=== PATIENT | female | born 1965 | race Caucasian/White ===

== ENCOUNTER → 2017-03-29 | Outpatient (CLI) | payer OTHER ==
[~2017-03-29] MED LIST: ATOM40 PO; BUTA1TAB30 PO; CYCL5TAB PO; IMIT25TA PO; PRED20 PO; TRAM50TA PO
[2017-03-29 10:04] LABS: HEMATOCRIT 35.4 % (35.0-46.0); MEAN CELL VOLUME 82.4 FL (80.0-100.0); MEAN CORPUSCULAR HEMOGLOBIN 27.2 PG (27.0-34.0); MEAN CORPUSCULAR HGB CONC 33.1 % (32.0-36.0); PLATELET COUNT 305 TH/MM3 (150-450); RED BLOOD COUNT 4.29 MIL/MM3 (4.00-5.30); RED CELL DISTRIBUTION WIDTH 15.1 % (11.6-17.2); REVIEW FLAG FINAL; WHITE BLOOD COUNT 11.6 TH/MM3 (4.0-11.0)
--- NOTE | 2017-03-29 21:21 | EKG ---
Date Performed: 03/29/2017 Time Performed: 09:57:15 PTAGE: 51 years EKG: Sinus rhythm LOW QRS VOLTAGE IN PRECORDIAL LEADS BORDERLINE ECG Compared to prior tracing no significant change DOCTOR: Katelin Benavides Interpretating Date/Time 03/29/2017 21:20:25
== END ==
LOC: CPRE 09:32
PROVIDERS: ATTEND Obstetrics & Gynecology
DX: Z01.810 Encounter for preprocedural cardiovascular examination (principal); Z01.812 Encounter for preprocedural laboratory examination; N92.0 Excessive and frequent menstruation with regular cycle
CPT/HCPCS: 36415; 84703; 85027; 93005

== ENCOUNTER 2017-04-04 06:02 | Observation (INO) | payer OTHER ==
[~2017-04-04] VITALS: Ht 160 cm; Wt 77.7 kg
[~2017-04-04 06:02] MED LIST changes: -IMIT25TA PO; -PRED20 PO
[2017-04-04] MEDS ORDERED: CHLORHEXIDINE GLUCONATE 2 % 1 PACK (2 CLOTHS) TOPICAL PRN (06:30)
[2017-04-04] MEDS ORDERED: ceFAZolin 1,000 MG/NS 100 ML IV SCH ×2 (06:30)
[2017-04-04] MEDS ORDERED: POVIDONE IODINE 5% (ANTISEPSIS KIT) 4 APPLICATIONS EACH NARE PRN (06:30)
[2017-04-04] MEDS ORDERED: METOPROLOL TARTRATE 25 MG TAB PO PRN (06:30)
[2017-04-04] MEDS ORDERED: LACTATED RINGER'S 1000 ML IV PRN (06:30)
[2017-04-04] MEDS: ONDANSETRON HCL 4 MG/2 ML VIAL IV PUSH SCH ×2 (06:46→15:22)
[2017-04-04] MEDS ORDERED: MIDAZOLAM HCL 2 MG/2 ML VIAL IV SCH (07:00)
[2017-04-04] MEDS ORDERED: VASOPRESSIN 20 UNITS/ML VIAL (IVTITR) ONE (07:30)
[2017-04-04] MEDS ORDERED: MORPHINE SULFATE 30 MG/30 ML PCA ONE (09:33)
[2017-04-04] MEDS ORDERED: DIMETHICONE/OXYBENZONE/PADMIATE LIP BALM 4.25 GM TOPICAL ONE (09:43)
[2017-04-04] MEDS ORDERED: *MEPERIDINE 25 MG INJ VIAL PERIprocedural Use ONLY ONE (09:54)
[2017-04-04] MEDS ORDERED: KETOROLAC TROMETHAMINE 30 MG/ML (IVP) VIAL ONE (09:54)
[2017-04-04] MEDS ORDERED: KETOROLAC TROMETHAMINE 30 MG/ML (IVP) VIAL IV PUSH ONE ×2 (09:55→17:45)
[2017-04-04] MEDS ORDERED: DEXT 5%-NACL 0.45% 1000 ML INJ 1,000 ML ONE (10:20)
[2017-04-04 11:20] VITALS: BP 121/70; PULSE 77; RESP 20; TEMP 97.2; O2SAT 97
[2017-04-04] MEDS ORDERED: DIMETHICONE/OXYBENZONE/PADMIATE LIP BALM 4.25 GM TOPICAL PRN (11:30)
[2017-04-04] MEDS ORDERED: ROCURONIUM INJ 50 MG/5 ML SYRINGE IV PUSH ONE (12:00)
[2017-04-04] MEDS ORDERED: DEXAMETHASONE SOD PHOS 4 MG/ML VIAL IV ONE (12:00)
[2017-04-04] MEDS ORDERED: LIDOCAINE HCL 1% PF 5 ML SYRINGE OTHER ONE (12:00)
[2017-04-04] MEDS ORDERED: PROPOFOL 200 MG/20 ML AMP IV ONE (12:00)
[2017-04-04] MEDS ORDERED: ONDANSETRON HCL 4 MG/2 ML VIAL IV PUSH ONE (12:00)
[2017-04-04] MEDS ORDERED: LACTATED RINGER'S 1000 ML INJ 3,000 ML IV ONE (12:00)
[2017-04-04] MEDS ORDERED: MIDAZOLAM HCL 2 MG/2 ML VIAL IV ONE (12:00)
[2017-04-04] MEDS ORDERED: EPINEPHrine HCL (1:1000) 1 MG/ML VIAL IV ONE (12:00)
[2017-04-04] MEDS ORDERED: SUGAMMADEX SODIUM 200 MG/2 ML VIAL IV PUSH ONE ×2 (12:35)
[2017-04-04] MEDS ORDERED: DO NOT ADM ANY ANTICOAGULANT DRUGS PRN (15:30)
[2017-04-04 20:00] VITALS: BP 147/82; PULSE 79; RESP 16; TEMP 97.8; O2SAT 94
[2017-04-04] MEDS ORDERED: MORPHINE SULFATE 30 MG/30 ML PCA IV SCH (20:00)
[2017-04-04] MEDS ORDERED: NALOXONE HCL 0.4 MG/ML AMP IV PUSH PRN (20:00)
[2017-04-04] MEDS ORDERED: ONDANSETRON HCL 4 MG/2 ML VIAL IV PUSH PRN (20:00)
[2017-04-04] MEDS ORDERED: diphenhydrAMINE HCL 50 MG/ML VIAL IV PUSH PRN (20:00)
[2017-04-04] MEDS ORDERED: DEXT 5%-NACL 0.45% 1000 ML INJ 1,000 ML IV SCH (20:00)
[2017-04-04] MEDS ORDERED: oxyCODONE/ACETAMINOPHEN 5 MG/325 MG TAB PO PRN (20:30)
[2017-04-04] MEDS ORDERED: PROMETHAZINE INJ 25 MG/ML VIAL IM ONE (20:30)
[2017-04-04] MEDS ORDERED: CYCLOBENZAPRINE HCL 10 MG TAB PO PRN (20:30)
[2017-04-04] MEDS ORDERED: PILL SPLITTER OTHER PRN (21:00)
[2017-04-04] MEDS ORDERED: PCA - TOTAL MG MORPHINE DELIVERED PER SHIFT SCH (22:00)
[2017-04-05] MEDS ORDERED: PROMETHAZINE INJ 25 MG/ML VIAL IM PRN (00:30)
[2017-04-05 01:00] VITALS: BP 109/68; PULSE 82; RESP 16; TEMP 97.8
[2017-04-05] MEDS: KETOROLAC TROMETHAMINE 10 MG TAB PO SCH ×3 (01:34→10:35)
[2017-04-05 05:00] VITALS: BP 118/69; PULSE 80; RESP 18; TEMP 98.1
[2017-04-05 05:59] LABS: REVIEW FLAG FINAL
[2017-04-05] MEDS ORDERED: ACETAMIN 325 MG/BUTALBITAL 50 MG/CAFFEINE 40 MG TAB PO PRN (06:45)
--- NOTE | 2017-04-05 07:56 | MP ---
cc: MADELINE US DATE OF SURGERY 04/04/2017 PREOPERATIVE DIAGNOSIS Leiomyomata uteri, menorrhagia. POSTOPERATIVE DIAGNOSIS Leiomyomata uteri, menorrhagia. PROCEDURE Laparoscopic-assisted supracervical hysterectomy and bilateral salpingectomy. SURGEON MD Ophelia ANESTHESIA General. ESTIMATED BLOOD LOSS 600 cc. COMPLICATIONS None. FINDINGS The patient had a uterus that was approximately 9-10 weeks' size with multiple subserosal and intramural leiomyomata uteri. The fallopian tubes and ovaries were unremarkable. The anterior and posterior cul-de-sacs were free of disease. The liver edge and upper abdominal organs were normal as far as could be visualized. DESCRIPTION OF PROCEDURE The patient was brought into the operating room and following general anesthesia was placed in dorsal lithotomy position. Her vagina, abdomen and perineum were prepped and draped. A HUMI catheter was placed in the uterus and a Morales catheter into the bladder. A 1-cm subumbilical skin incision was made. A Veress needle was inserted and 3 liters of CO2 was infused into the abdomen. The Veress needle was then removed and the laparoscope was placed without difficulty. A second, third and fourth puncture site were created under direct visualization. The findings were as noted above. The harmonic scalpel was used to clamp, cut and seal the upper broad ligaments and round ligaments. The bladder peritoneum was incised and the bladder was sharply dissected off of the anterior cervix. The uterine vessels were skeletonize, then clamped, cut and sealed with the harmonic scalpel. In doing this there was brisk bleeding from the right uterine vessel complex. We made multiple times to seal this before using the Kleppinger forceps successfully. The bleeding from this area accounted for the majority of her excessive blood loss above 200 cc which is more typical. With hemostasis good, the Linne Loop was brought into placed and the cervix was transected across the upper portion. One arteriolar pumper was cauterized. At that point good hemostasis was noted in the entire pelvis. The uterus was then morcellated and removed. The fallopian tubes were removed by sealing the mesosalpinx with the harmonic scalpel and cutting them. The tubes were sent along with the uterus to pathology. The pelvis was copiously irrigated and once more good hemostasis was noted. Photos of all areas were taken. The trocars were then removed and the CO2 gas was allowed to escape. Incisions were then closed with subcuticular #4-0 Vicryl stitch. The patient was then taken to the recovery room in good condition with all counts correct and clear urine draining in the Morales catheter. MD SHIRA Moise/SSB /6:36 PM /7:52 AM
[2017-04-05 08:00] VITALS: BP 109/69; PULSE 76; RESP 16; TEMP 99
[2017-04-05] MEDS: ATOMOXETINE HYDROCHLORIDE 40 MG CAP PO SCH ×2 (08:02→09:00)
[2017-04-05 12:00] VITALS: BP 122/69; PULSE 89; RESP 16; TEMP 98.2
== END 2017-04-05 11:55 | disposition home or self-care (01) ==
LOC: HSDC 06:02 → H1EA 09:30
PROVIDERS: ADMIT Obstetrics & Gynecology; ATTEND Obstetrics & Gynecology
DX: N92.0 Excessive and frequent menstruation with regular cycle (principal); D25.9 Leiomyoma of uterus, unspecified; N83.8 Other noninflammatory disorders of ovary, fallopian tube and broad ligament
CPT/HCPCS: 00840; 58542; 85014; 85018; 86850; 86900; 86901; 86920; 88307; 96372; 96374; 96375; 96376; G0378; J0171; J0690; J1100; J1885; J2175; J2250; J2270; J2405; J2550; J3010; J7120; 36430; P9016

== ENCOUNTER 2017-04-10 13:40 | Emergency (ER) | payer OTHER ==
[~2017-04-10] VITALS: Ht 160 cm; Wt 80.0 kg
[2017-04-10 13:41] VITALS: BP 193/87; PULSE 112; RESP 16; TEMP 97.8; O2SAT 100
[2017-04-10] MEDS ORDERED: IMIT25TA PO (14:14)
[2017-04-10] MEDS ORDERED: PROCHLORPERAZINE INJ 10 MG/2 ML VIAL IVP ONE (14:15)
[2017-04-10] MEDS ORDERED: diphenhydrAMINE HCL 50 MG/ML VIAL IVP ONE (14:15)
[2017-04-10] MEDS ORDERED: MORPHINE SULFATE 2 MG/ML INJ IM ONE (14:15)
--- NOTE | 2017-04-10 14:21 | PD ---
HPI Chief Complaint: Neuro Symptoms/ Deficits Time Seen by Provider: 13:56 Travel History International Travel<30 days: No Contact w/Intl Traveler<30days: No Traveled to known affect area: No History of Present Illness HPI 51-year-old female presents the emergency department with history of transabdominal hysterectomy 6 days ago. Patient then developed migraine symptoms 5 days ago which she has a history of. Since that time the patient is now complaining of low-grade headache at the base of her scalp, and left sided numbness to the left arm and leg. She describes it as pins and needles. She also feels somewhat flighty today. Patient has had some nausea but no vomiting. Patient does have a distant history of lupus which has not been treated since 2007. Patient denies urinary symptoms or troubles with her bowels. She denies fever. She denies visual symptoms. Patient is been taking Naprosyn regularly for her headache for the past 3 days. She denies difficulty walking or any specific complaints of weakness. She has no known drug allergies. PFSH Past Medical History Arthritis: No Asthma: No Autoimmune Disease: Yes (SLE LUPUS) Blood Disorders: No Anxiety: No Depression: No Heart Rhythm Problems: No Cancer: No Cardiac Catheterization: Yes Cardiovascular Problems: No High Cholesterol: No Chest Pain: Yes (OCCASSIONAL) Congestive Heart Failure: No COPD: No Cerebrovascular Accident: No Diabetes: No Diminished Hearing: No Endocrine: No GERD: No Glaucoma: No Genitourinary: No Headaches: Yes (OCCASSIONAL) Hepatitis: No Hiatal Hernia: No Hypertension: Yes Immune Disorder: Yes (LUPUS) Implanted Vascular Access Dvce: No Kidney Stones: No Musculoskeletal: No Neurologic: Yes (MIGRAINES, HERNIATED DISK) Psychiatric: No Reproductive: Yes (FIBROIDS) Respiratory: No Immunizations Current: No Migraines: Yes (OCCASSIONAL) Myocardial Infarction: No Renal Failure: No Seizures: Yes (JUST HAD SEIZURE X 1--TAKES NO MEDS FOR--NO FURTHER PROBLEMS) Sickle Cell Disease: No Sleep Apnea: No Thyroid Disease: No Ulcer: No PNEUMOCCOCAL Vaccine (Year): 2 ?: Not Menopausal: No : 4 Para: 2 Miscarriage: 2 Ectopic : No Ovarian Cysts: No Dilation and Curettage (D&C): No Tubal Ligation: No Past Surgical History Abdominal Surgery: Yes ([id number]/LAP JES ) AICD: No Arteriovenous Shunt: No Body Medical Devices: BREAST AUGMENTATION Cardiac Surgery: Yes (CARDIAC CATH 2005--FOR CP) Cholecystectomy: Yes (LAP JES 2007) Coronary Artery Bypass Graft: No Ear Surgery: No Endocrine Surgery: No Eye Surgery: No Genitourinary Surgery: No Gynecologic Surgery: No Hysterectomy: Yes Insulin Pump: No Joint Replacement: No Oral Surgery: No Pacemaker: No Thoracic Surgery: No Tonsillectomy: Yes Other Surgery: Yes (BREAST AUGMENTATION) Social History Alcohol Use: Yes (OCCASSIONAL WINE) Tobacco Use: No Substance Use: No Allergies-Medications (Allergen,Severity, Reaction): Coded Allergies: No Known Allergies (Verified Allergy, Unknown, 04/10/17) Reported Meds & Prescriptions Reported Meds & Active Scripts Active Reported Imitrex (Sumatriptan Succinate) 25 Mg Tab 25 Mg PO Q6HR If a satisfactory response has not been obtained at 2 hours, a second dose may be administered Strattera (Atomoxetine HCl) 40 Mg Cap 40 Mg PO DAILY Tramadol (Tramadol HCl) 50 Mg Tab 50 Mg PO Q6H PRN Flexeril (Cyclobenzaprine HCl) 5 Mg Tab 5 Mg PO TID Butalbital-Acetaminophen 50-325 Mg Tab 1-2 Tab PO Q4HR PRN Do not exceed 6 tablets per day. Review of Systems Except as stated in HPI: all other systems reviewed are Neg General / Constitutional: No: Fever, Chills Eyes: No: Diploplia, Blurred Vision, Photophobia, Blind Spots, Visual changes, Blindness HENT: Positive: Headaches, No: Vertigo, Lightheadedness, Sore Throat, Rhinitis , Rhinorrhea, Congestion, Nosebleed, Neck Stiffness, Neck Pain, Dental Difficulties, Earache Cardiovascular: No: Chest Pain or Discomfort Respiratory: No: Cough, Shortness of Breath, Wheezing Gastrointestinal: Positive: Nausea, No: Vomiting, Diarrhea, Abdominal Pain Genitourinary: No: Dysuria Musculoskeletal: No: Pain Skin: No Rash Neurologic: Positive: Headache, Paresthesia (see history present illness), No: Weakness, Dizziness, Syncope, Focal Abnormalities, Coordination Problem, Tremor , Ataxia, Change in Mentation, Slurred Speech, Incontinence, Seizures Psychiatric: No: Depression Endocrine: No: Polydipsia Hematologic/Lymphatic: No: Easy Bruising Physical Exam Narrative GENERAL: Patient appears somewhat anxious but otherwise in no acute distress. SKIN: Warm and dry. Normal color. Normal turgor. No rash. Well-healed surgical incisions on the abdomen are noted. HEAD: Atraumatic. Normocephalic. EYES: Pupils equal and round. No scleral icterus. No injection or drainage. Ocular motions are full bilaterally. ENT: No nasal bleeding or discharge. Mucous membranes pink and moist. Pharynx is clear. Airway is patent. NECK: Trachea midline. Supple and nontender without bruits. CARDIOVASCULAR: Regular rate and rhythm. No murmurs gallops or rubs. RESPIRATORY: No accessory muscle use. Clear to auscultation. Breath sounds equal bilaterally. GASTROINTESTINAL: Abdomen soft, non-tender, nondistended. Hepatic and splenic margins not palpable. MUSCULOSKELETAL: Extremities without clubbing, cyanosis, or edema. No obvious deformities. NEUROLOGICAL: Awake and alert. No obvious cranial nerve deficits. Patient has normal fine motor skills with normal Finger to Nose testing. Motor grossly within normal limits. Five out of 5 muscle strength in the arms and legs. Normal speech. Patient reports a sensation of pins and needles to the left lateral arm and forearm, as well as the lateral leg and lower leg. PSYCHIATRIC: Appropriate mood and affect; insight and judgment normal. Data Data Last Documented VS Vital Signs Date Time Temp Pulse Resp B/P (MAP) Pulse Ox O2 Delivery O2 Flow Rate FiO2 04/10/17 15:00 99 18 144/82 (102) 95 Room Air 04/10/17 13:41 97.8 Orders Orders Complete Blood Count With Diff (04/10/17 14:09) Comprehensive Metabolic Panel (04/10/17 14:09) Westergren Sedimentation Rate (04/10/17 14:09) C-Reactive Protein (Crp) (04/10/17 14:09) Prothrombin Time / Inr (Pt) (04/10/17 14:09) Act Partial Throm Time (Ptt) (04/10/17 14:09) Ct Brain W/O Iv Contrast(Rout) (04/10/17 14:09) Ecg Monitoring (04/10/17 14:09) Iv Access Insert/Monitor (04/10/17 14:09) Oximetry (04/10/17 14:09) Sodium Chloride 0.9% Flush (Ns Flush) (04/10/17 14:15) Prochlorperazine Inj (Compazine Inj) (04/10/17 14:15) Diphenhydramine Inj (Benadryl Inj) (04/10/17 14:15) Morphine Inj (Morphine Inj) (04/10/17 14:15) Morphine Inj (Morphine Inj) (04/10/17 15:00) Labs Laboratory Tests Test 04/10/17 14:40 White Blood Count 11.0 TH/MM3 Red Blood Count 3.65 MIL/MM3 Hemoglobin 10.1 GM/DL Hematocrit 30.0 % Mean Corpuscular Volume 82.2 FL Mean Corpuscular Hemoglobin 27.6 PG Mean Corpuscular Hemoglobin Concent 33.6 % Red Cell Distribution Width 15.3 % Platelet Count 371 TH/MM3 Mean Platelet Volume 7.1 FL Neutrophils (%) (Auto) 68.1 % Lymphocytes (%) (Auto) 20.5 % Monocytes (%) (Auto) 6.8 % Eosinophils (%) (Auto) 4.0 % Basophils (%) (Auto) 0.6 % Neutrophils # (Auto) 7.5 TH/MM3 Lymphocytes # (Auto) 2.2 TH/MM3 Monocytes # (Auto) 0.7 TH/MM3 Eosinophils # (Auto) 0.4 TH/MM3 Basophils # (Auto) 0.1 TH/MM3 CBC Comment DIFF FINAL Differential Comment Erythrocyte Sedimentation Rate 40 mm/hr Prothrombin Time 10.3 SEC Prothromb Time International Ratio 0.9 RATIO Activated Partial Thromboplast Time 22.2 SEC Blood Urea Nitrogen 12 MG/DL Creatinine 0.60 MG/DL Random Glucose 115 MG/DL Total Protein 7.2 GM/DL Albumin 3.3 GM/DL Calcium Level 8.3 MG/DL Alkaline Phosphatase 99 U/L Aspartate Amino Transf (AST/SGOT) 13 U/L Alanine Aminotransferase (ALT/SGPT) 21 U/L Total Bilirubin 0.2 MG/DL Sodium Level 138 MEQ/L Potassium Level 3.9 MEQ/L Chloride Level 104 MEQ/L Carbon Dioxide Level 26.6 MEQ/L Anion Gap 7 MEQ/L Estimat Glomerular Filtration Rate 105 ML/MIN C-Reactive Protein 1.60 MG/DL [facility] Medical Decision Making Medical Screen Exam Complete: Yes Emergency Medical Condition: Yes Medical Record Reviewed: Yes Differential Diagnosis Dysesthesias. Migraine syndrome. Lupus flare. Multiple sclerosis. Anxiety. Headache. Narrative Course Patient appears medically stable at time of exam. Stroke is not indicated by exam. Labs ordered including CBC, CMP, CRP, sedimentation rate, and coagulation studies. CT of the brain is ordered without contrast. IV access is obtained and the patient is given 10 mg Compazine IV as well as 2 mg morphine IV, and [address] is unremarkable for acute process. There is noted sinus congestion and thickening noted. CBC is unremarkable other than mildly anemia with a hemoglobin of 10.1 which is improved from her previous labs. ESR is elevated at 40. Regulation studies are normal. CMP significant for random glucose of 115, calcium 8.3, AST is 13, C-reactive protein is elevated at 1.60, and albumin is 3.3. Patient is discussed with Dr. Schuster. Patient is felt to possibly be having a flare of her lupus, but otherwise medically stable. Patient will be treated with Decadron 10 mg IV now. She'll be continued on prednisone 20 mg twice a day 5 days. Recommend follow-up with a local primary care physician in the next week to ensure improvement and possible neuro eval if symptoms continue or worsen. Patient can always return to emergency department as needed. Diagnosis Primary Impression: Lupus (systemic lupus erythematosus) Qualified Codes: M32.9 - Systemic lupus erythematosus, unspecified Additional Impression: Neuralgia Referrals: Primary Care Physician Patient Instructions: Autoimmune Disease (ED), General Instructions Additional Instructions: Patient is felt to possibly be having a flare of her lupus, but otherwise medically stable. Patient will be treated with Decadron 10 mg IV now. She'll be continued on prednisone 20 mg twice a day 5 days. Recommend follow-up with a local primary care physician in the next week to ensure improvement and possible neuro eval if symptoms continue or worsen. Patient can always return to emergency department as needed. Disposition: 01 DISCHARGE HOME Condition: Stable Tulio Trujillo Apr 10, 2017 14:21
[2017-04-10 14:44] VITALS: O2SAT 98
[2017-04-10] MEDS: SODIUM CHLORIDE 0.9% FLUSH 10 ML FLUSH IVF PRN ×2 (14:56→17:11)
[2017-04-10 15:00] VITALS: BP 144/82; PULSE 99; RESP 18; O2SAT 95
[2017-04-10] MEDS ORDERED: MORPHINE SULFATE 2 MG/ML INJ IV PUSH ONE (15:00)
--- NOTE | 2017-04-10 15:14 | RADRPT ---
EXAM DATE/TIME: 04/10/2017 14:38 [facility] COMPARISON: CT BRAIN W/O CONTRAST, August 02, 2010, 16:25. INDICATIONS : Dizziness. RADIATION DOSE: 56.35 CTDIvol (mGy) MEDICAL HISTORY : Seizures. Cardiovascular disease Lupus. SURGICAL HISTORY : Hysterectomy. Cholecystectomy. ENCOUNTER: Initial ACUITY: 1 day PAIN SCALE: 0/10 LOCATION: Bilateral cranial TECHNIQUE: Multiple contiguous axial images were obtained of the head. Using automated exposure control and adj ustment of the mA and/or kV according to patient size, radiation dose was kept as low as reasonably a chievable to obtain optimal diagnostic quality images. DICOM format image data is available electro nically for review and comparison. FINDINGS: CEREBRUM: The ventricles are normal for age. No evidence of midline shift, mass lesion, hemorrhage or acute in farction. No extra-axial fluid collections are seen. POSTERIOR FOSSA: The cerebellum and brainstem are intact. The 4th ventricle is midline. The cerebellopontine angle i s unremarkable. EXTRACRANIAL: The visualized portion of the orbits is intact. Opacification of several posterior ethmoid air cells . There is also minimal mucosal thickening in the posterior maxillary sinuses bilaterally measuring less than 3 mm. SKULL: The calvaria is intact. No evidence of skull fracture. CONCLUSION: 1. No acute findings in the brain. 2. Bilateral ethmoid sinus disease. Minimal mucosal thickening in the maxillary sinuses. Soy Ponce MD on April 10, 2017 at 15:10 Board Certified Radiologist. This report was verified electronically.
[2017-04-10 15:17] LABS: AUTOMATED NEUTROPHIL # 7.5 TH/MM3 (1.8-7.7); BASOPHIL # 0.1 TH/MM3 (0-0.2); BASOPHIL % 0.6 % (0.0-2.0); EOSINOPHIL # 0.4 TH/MM3 (0-0.4); HEMO FLAGS DIFF FINAL; LYMPH % 20.5 % (9.0-44.0); LYMPHOCYTE # 2.2 TH/MM3 (1.0-4.8); MEAN CELL VOLUME 82.2 FL (80.0-100.0); MEAN CORPUSCULAR HEMOGLOBIN 27.6 PG (27.0-34.0); MEAN CORPUSCULAR HGB CONC 33.6 % (32.0-36.0); MONO % 6.8 % (0.0-8.0); NEUT % 68.1 % (16.0-70.0); PLATELET COUNT 371 TH/MM3 (150-450); RED BLOOD COUNT 3.65 MIL/MM3 (4.00-5.30); RED CELL DISTRIBUTION WIDTH 15.3 % (11.6-17.2)
[2017-04-10 15:40] LABS: APTT (PATIENT) 22.2 SEC (24.3-30.1); INTERNATIONAL NORMALIZED RATIO 0.9 RATIO; PROTHROMBIN TIME - PATIENT 10.3 SEC (9.8-11.6)
[2017-04-10 15:55] LABS: ALT (GPT) 21 U/L (10-53); ANION GAP 7 MEQ/L (5-15); AST (GOT) 13 U/L (15-37); BICARBONATE 26.6 MEQ/L (21.0-32.0); BLOOD UREA NITROGEN 12 MG/DL (7-18); CHLORIDE 104 MEQ/L (98-107); GLOMERULAR FILTRATION RATE 105 ML/MIN (>89); POTASSIUM 3.9 MEQ/L (3.5-5.1); SODIUM (NA) 138 MEQ/L (136-145)
[2017-04-10 15:57] LABS: ALKALINE PHOSPHATASE 99 U/L (45-117); TOTAL BILIRUBIN ADULT 0.2 MG/DL (0.2-1.0)
--- NOTE | 2017-04-10 16:03 | PD ---
Physical Exam Date Seen by Provider: Apr 10, 2017 Narrative Patient presents with some numbness on her left side. No weakness. Data Data Last Documented VS Vital Signs Date Time Temp Pulse Resp B/P (MAP) Pulse Ox O2 Delivery O2 Flow Rate FiO2 04/10/17 15:00 99 18 144/82 (102) 95 Room Air 04/10/17 13:41 97.8 Orders Orders Complete Blood Count With Diff (04/10/17 14:09) Comprehensive Metabolic Panel (04/10/17 14:09) Westergren Sedimentation Rate (04/10/17 14:09) C-Reactive Protein (Crp) (04/10/17 14:09) Prothrombin Time / Inr (Pt) (04/10/17 14:09) Act Partial Throm Time (Ptt) (04/10/17 14:09) Ct Brain W/O Iv Contrast(Rout) (04/10/17 14:09) Ecg Monitoring (04/10/17 14:09) Iv Access Insert/Monitor (04/10/17 14:09) Oximetry (04/10/17 14:09) Sodium Chloride 0.9% Flush (Ns Flush) (04/10/17 14:15) Prochlorperazine Inj (Compazine Inj) (04/10/17 14:15) Diphenhydramine Inj (Benadryl Inj) (04/10/17 14:15) Morphine Inj (Morphine Inj) (04/10/17 14:15) Morphine Inj (Morphine Inj) (04/10/17 15:00) Labs Laboratory Tests Test 04/10/17 14:40 White Blood Count 11.0 TH/MM3 Red Blood Count 3.65 MIL/MM3 Hemoglobin 10.1 GM/DL Hematocrit 30.0 % Mean Corpuscular Volume 82.2 FL Mean Corpuscular Hemoglobin 27.6 PG Mean Corpuscular Hemoglobin Concent 33.6 % Red Cell Distribution Width 15.3 % Platelet Count 371 TH/MM3 Mean Platelet Volume 7.1 FL Neutrophils (%) (Auto) 68.1 % Lymphocytes (%) (Auto) 20.5 % Monocytes (%) (Auto) 6.8 % Eosinophils (%) (Auto) 4.0 % Basophils (%) (Auto) 0.6 % Neutrophils # (Auto) 7.5 TH/MM3 Lymphocytes # (Auto) 2.2 TH/MM3 Monocytes # (Auto) 0.7 TH/MM3 Eosinophils # (Auto) 0.4 TH/MM3 Basophils # (Auto) 0.1 TH/MM3 CBC Comment DIFF FINAL Differential Comment Erythrocyte Sedimentation Rate 40 mm/hr Prothrombin Time 10.3 SEC Prothromb Time International Ratio 0.9 RATIO Activated Partial Thromboplast Time 22.2 SEC Blood Urea Nitrogen 12 MG/DL Creatinine 0.60 MG/DL Random Glucose 115 MG/DL Total Protein 7.2 GM/DL Albumin 3.3 GM/DL Calcium Level 8.3 MG/DL Alkaline Phosphatase 99 U/L Aspartate Amino Transf (AST/SGOT) 13 U/L Alanine Aminotransferase (ALT/SGPT) 21 U/L Total Bilirubin 0.2 MG/DL Sodium Level 138 MEQ/L Potassium Level 3.9 MEQ/L Chloride Level 104 MEQ/L Carbon Dioxide Level 26.6 MEQ/L Anion Gap 7 MEQ/L Estimat Glomerular Filtration Rate 105 ML/MIN C-Reactive Protein 1.60 MG/DL MDM Supervised Visit with EVELYNE: Yes Narrative Course I, Dr. Schuster, have reviewed the advance practice practitioner's documentation and am in agreement, met with the patient face to face, made the diagnosis, and the medical decision making was done by me. *My assessment and Findings: Patient is awake and alert and in no acute distress. She has a normal smile and a normal gait. Please see Brian Trujillo PA-C's note for results of laboratory and radiographic evaluation, ED course, final diagnosis and disposition Condition: Stable Nadya Schuster MD Apr 10, 2017 16:03
[2017-04-10] MEDS ORDERED: DEXAMETHASONE SOD PHOS 20 MG/5 ML VIAL IV PUSH ONE (16:15)
[2017-04-10 17:00] VITALS: BP 125/64; PULSE 86; RESP 19; O2SAT 98
[2017-04-10] MEDS ORDERED: PRED20 PO (17:10)
== END 2017-04-10 17:27 | disposition home or self-care (01) ==
LOC: NEPC 13:40
DX: M32.9 Systemic lupus erythematosus, unspecified (principal); M79.2 Neuralgia and neuritis, unspecified
CPT/HCPCS: 70450; 80053; 85025; 85610; 85652; 85730; 86140; 96374; 96375; 99285; J0780; J1100; J1200; J2270